=== PATIENT | female | born 1990 | race Caucasian/White ===

== ENCOUNTER → 2017-09-03 11:19 | Outpatient (CLI) | payer BC, SELFPAY ==
[2017-09-03 13:43] LABS: hCG Titer Quant., Serum < 1 mIU/mL (<9 non-preg)
[2017-09-03 13:48] LABS: Follicle Stimulating Hormone 5.8 mIU/mL; Free T3 3.3 pg/mL (2.18-3.98); Hemoglobin A1c 5.2 % (4.2-6.3); Progesterone Level 0.42 ng/mL (See Comment); T4 Free Direct 1.23 ng/dL (0.76-1.46); Thyroid Stim Hormone (TSH) 1.14 uIU/mL (0.358-3.74)
[2017-09-09 15:46] LABS: HPV Reflexed? NOT INDICATED
== END ==
PROVIDERS: Visit Provider Obstetrics & Gynecology
DX: N92.6 Irregular menstruation, unspecified (principal); Z12.4 Encounter for screening for malignant neoplasm of cervix
CPT/HCPCS: 36415; 82670; 83001; 83002; 83036; 84144; 84403; 84439; 84443; 84481; 84702; 88175; G0145

== ENCOUNTER → 2018-10-09 | Outpatient (CLI) | payer BC, SELFPAY ==
[2018-10-23 14:05] LABS: HPV Reflexed? NOT INDICATED
== END | disposition home or self-care (01) ==
LOC: LABSPEC 10-15 11:03
PROVIDERS: Visit Provider Obstetrics & Gynecology
DX: Z12.4 Encounter for screening for malignant neoplasm of cervix (principal)
CPT/HCPCS: 88175; G0145